=== PATIENT | female | born 1985 | race Caucasian/White ===

== ENCOUNTER → 2021-04-24 15:56 | Outpatient (CLI) | payer OTHER, SELFPAY ==
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
== END ==
PROVIDERS: PCP Chiropractor; Visit Provider Chiropractor
DX: M50.322 Other cervical disc degeneration at C5-C6 level (principal)
CPT/HCPCS: 72040

== ENCOUNTER → 2021-07-03 08:49 | Outpatient (CLI) | payer OTHER, SELFPAY ==
--- NOTE | ~2021-07-03 | MMUS_ITS ---
EXAMINATION: MM diagnostic rufina BI w reji, US breast LT limited HISTORY: Palpable left breast lump. Breast pain. TECHNIQUE: Additional 3-D tomosynthesis images of the breasts were performed and synthetic 2-D images were generated. CAD analysis was submitted and interpreted. High resolution Limited left breast ultr asound was performed. COMPARISON: None BREAST PARENCHYMAL COMPOSITION: The breasts are heterogenously dense, which may obscure small masses. FINDINGS: MAMMOGRAPHIC FINDINGS: No suspicious masses, calcifications or architectural distortion in either breast to suggest malignan cy. ULTRASOUND: Limited left breast ultrasound: Normal heterogeneous echotexture without focal solid or cystic mass. IMPRESSION: 1. No evidence for malignancy in either breast. 2. Routine yearly screening mammogram and regular clinical breast examination are recommended. BI-RADS Category 1: Negative Reviewed, dictated and finalized at [facility]. IMPRESSION: 1. No evidence for malignancy in either breast. 2. Routine yearly screening mammogram and regular clinical breast examination a re recommended. BI-RADS Category 1: Negative
== END ==
PROVIDERS: PCP Nurse Practitioner; Visit Provider Nurse Practitioner
DX: N63.32 Unspecified lump in axillary tail of the left breast (principal); Z80.3 Family history of malignant neoplasm of breast
CPT/HCPCS: 76642; 77062; 77066; G0279

== ENCOUNTER 2021-07-30 01:57 | Day surgery (SDC) | payer OTHER, SELFPAY ==
[2021-07-18 14:32] VITALS: BMI 26.4
[2021-07-30 11:14] VITALS: BP 118/76; PULSE 101; RESP 16; TEMP 36.4; O2SAT 100; BMI 25.7
[2021-07-30] MEDS: LACTATED RINGERS 1,000 ML 150 ML IV CONT (11:23)
--- NOTE | 2021-07-30 11:28 | WPDGICN ---
Assessment and Plan Assessment and plan (1) Family history of colon cancer in father: Code(s): Z80.0 - Family history of malignant neoplasm of digestive organs Status: Acute Assessment and Plan: Patient's father had colon cancer. Plan is for screening surveillance colonoscopy because of this. Evaluation at 5 year intervals is advised. (2) Diarrhea: Code(s): R19.7 - Diarrhea, unspecified Status: Acute Assessment and Plan: Patient has had diarrhea rather persistent over the last 8 months described as watery stools several times a day. Currently she has tried no specific medications. She does occasionally use Kaopectate. I would recommend she try FiberCon 2 tabs p.o. b.i.d.. Colonoscopy will be performed. Further recommendations may be given after endoscopy. GI Consult Note Consult date/time: 07/30/21 11:28 HPI: Ailyn Mann is a 36 year old female Presents for colonoscopy. Patient reports that she has had diarrhea for at least 8 months. She denies any travel. She has had no change in medications. Her family history is significant her father had colon cancer. Patient reports bowel habits previously were normal. May been a little bit loose last year. Over the last 6 months she has had nonstop diarrhea stools sometimes up to 6 times a day. She denies any bleeding or abdominal pain. She has made an attempt to get more fiber in her diet this is helped to some degree. She is referred now for a colonoscopy. She denies any prior infection. She is currently on no med medications. Review of Systems Review of Systems: All systems reviewed & are unremarkable except as noted in HPI and below PMFSH Past Medical History Medical History (Updated 07/30/21 @ 11:30 by Rj Machado MD) Anxiety Asthma Depression PCOS (polycystic ovarian syndrome) Social History Social History Smoking packs per day: 0.5 Smoking cigarettes per day: 10.0 Smoking status: Current every day smoker Tobacco type: cigarettes Living arrangements: with family Spiritual care concerns: No Meds Home Medications and Allergies Home Medications Medication Instructions Recorded Confirmed Type cetirizine [Zyrtec] 10 mg PO DAILY PRN 07/18/21 07/30/21 History cholecalciferol (vitamin D3) 25 mcg PO DAILY 07/18/21 07/30/21 History [Vitamin D3] vitamin B complex [Vitamin B-100 1 tablet PO DAILY 07/18/21 07/30/21 History Complex] Allergies Allergy/AdvReac Type Severity Reaction Status Date / Time acetaminophen Allergy Unknown Itching Verified 07/30/21 11:13 HYDROCODONE BIT Allergy Unknown Itching Uncoded 07/30/21 11:13 Vital Signs Vital Signs - 24 hr 07/30/21 11:14 Temperature 97.5 F L Pulse Rate 101 H Respiratory Rate 16 Blood Pressure 118/76 Pulse Oximetry 100 Exam Narrative: Physical exam reveals patient to be alert. Vital signs stable. HEENT exam is unremarkable. Lungs are clear to auscultation and percussion. Heart is without murmur or extra sounds. Abdominal exam bowel sounds present soft nontender with no organomegaly. Digital external rectal exam is normal.
--- NOTE | 2021-07-30 11:48 | WPDANESEPPF ---
Anes - Initial Pre Proc Eval Procedure: Operation Date: 07/30/21 12:30 Proposed Procedures p Colonoscopy With Biopsy - Rj Machado MD Date/Time: 07/30/21 11:48 Surgeon: Rj Machado MD Pre Op Diagnosis: diarrhea, family hx colon ca Patient Data Age: 36 Gender: F Height: 1.63 m Weight: 67.9 kg Last Vital Signs Temp 97.5 F L 07/30/21 11:14 Pulse 101 H 07/30/21 11:14 Resp 16 07/30/21 11:14 BP 118/76 07/30/21 11:14 Pulse Ox 100 07/30/21 11:14 Allergies Allergy/AdvReac Type Severity Reaction Status Date / Time acetaminophen Allergy Unknown Itching Verified 07/30/21 11:13 HYDROCODONE BIT Allergy Unknown Itching Uncoded 07/30/21 11:13 Home Medications Medication Instructions Recorded Confirmed Type cetirizine [Zyrtec] 10 mg PO DAILY PRN 07/18/21 07/30/21 History cholecalciferol (vitamin D3) 25 mcg PO DAILY 07/18/21 07/30/21 History [Vitamin D3] vitamin B complex [Vitamin B-100 1 tablet PO DAILY 07/18/21 07/30/21 History Complex] Patient hx anesthesia problems: none Family hx anesthesia problems: none Results Review: All pre-operative results and documents have been reviewed as part of the pre-operative evaluation. [facility] Past Medical History Medical History (Updated 07/30/21 @ 11:30 by Rj Machado MD) Anxiety Asthma Depression PCOS (polycystic ovarian syndrome) Social History Social History Smoking packs per day: 0.5 Smoking cigarettes per day: 10.0 Smoking status: Current every day smoker Tobacco type: cigarettes Living arrangements: with family Spiritual care concerns: No Anes - Eval Final PreProcedure Day of Procedure 07/30/21 11:48 Patient weight: normal Heart: regular rate and rhythm Lungs: clear to auscultation Airway: Mallampati scale class II Neurological: alert and oriented Last oral intake: >/= 8 hours ASA classification: II Emergent: no Anesthetic plan: proceed Anesthesia type and monitoring: general GIVS and standard monitoring Results Review: All pre-operative results and documents have been reviewed as part of the pre-operative evaluation. Informed Consent: The patient's anesthetic plan and its attendant risks and benefits were discussed with the patient/family/POA. Questions were solicited and answers provided to the satisfaction of the patient/family/POA.
[2021-07-30] MEDS: SIMETHICONE ORAL SUSPENSION 20 MG/0.3 ML 30 ML BOTTLE 0.6 ML IRRIGATION (12:10)
[2021-07-30 12:17] VITALS: BP 130/97; PULSE 90; RESP 20; O2SAT 100
[2021-07-30 12:27] VITALS: BP 124/90; PULSE 82; RESP 18; O2SAT 100
[2021-07-30 12:37] VITALS: BP 136/95; PULSE 78; RESP 18; O2SAT 100
== END 2021-07-30 12:42 | disposition home or self-care (01) ==
PROVIDERS: PCP Nurse Practitioner; Visit Provider Internal Medicine Gastroenterology
PROC: 0DJD8ZZ Inspection of Lower Intestinal Tract, Via Natural or Artificial Opening Endoscopic (ICD-10-PCS; CPT 45378; principal; 2021-07-30 12:30)
DX: R19.7 Diarrhea, unspecified (principal); Z80.0 Family history of malignant neoplasm of digestive organs; F41.9 Anxiety disorder, unspecified; J45.909 Unspecified asthma, uncomplicated; F32.A Depression, unspecified; E28.2 Polycystic ovarian syndrome; F17.210 Nicotine dependence, cigarettes, uncomplicated; K64.8 Other hemorrhoids
CPT/HCPCS: 45380; 88305; J2704; J7120